=== PATIENT | female | born 1965 | race Caucasian/White ===

== ENCOUNTER 2016-08-21 17:29 | Emergency (ER) | payer OTHER ==
--- NOTE | 2016-08-21 17:52 | ERNOTE ---
Neuro HPI ER Record Date of Service: 08/21/16 Presenting Symptoms: weakness, numbness, parasthesia, impaired speech, difficulty walking, difficulty standing Time Seen by Provider: 08/21/16 17:43 Source: patient Exam Limitations: no limitations Immunizations: IMMUNIZATION HX Immunizations Up to Date Yes History of Influenza Vaccine No Hx Pneumococcal Vaccination No Allergies/Adverse Reactions: Allergies Allergy/AdvReac Type Severity Reaction Status Date / Time No Known Allergies Allergy Verified 08/21/16 17:40 Home Medications: HOME MEDICATIONS ALPRAZolam [Xanax] 1 mg PO TID PRN 03/30/15 [Last Taken Unknown] Aspirin 81 mg PO DAILY 03/30/15 [Last Taken Unknown] Atorvastatin Calcium 80 mg PO DAILY 03/30/15 [Last Taken Unknown] Calcium Citrate/Vitamin D3 [Calcium Citrate - Vit D Caplet] 1 each PO DAILY 04/05 [Last Taken Unknown] Cholecalciferol (Vitamin D3) [Vitamin D3] 2,000 unit PO DAILY 03/30/15 [Last Taken Unknown] Cyanocobalamin (Vitamin B-12) [Vitamin B-12] 1,200 mcg PO DAILY 03/30/15 [Last Taken Unknown] Docusate Sodium [Colace] 100 mg PO BID 03/30/15 [Last Taken Unknown] Folic Acid 1 mg PO DAILY 03/30/15 [Last Taken Unknown] Humira Q14D 03/30/15 [Last Taken Unknown] Methotrexate Sodium [Methotrexate] 6 tab PO Q7D 03/30/15 [Last Taken Unknown] Multivit with Calcium,Iron,Min [Women's Daily Formula] 1 each PO DAILY 03/30/15 [Last Taken Unknown] [place]-3 Fatty Acids [Fish Oil] 1,000 mg PO DAILY 03/30/15 [Last Taken Unknown] Oxycodone HCl/Acetaminophen [Percocet 10-325 mg Tablet] 2 each PO QID PRN [Last Taken Unknown] Bupropion HCl [Wellbutrin] 75 mg PO BID 08/29/15 [Last Taken Unknown] Naloxegol Oxalate [Movantik] 25 mg PO 08/29/15 [Last Taken Unknown] Suvorexant [Belsomra] 20 mg PO 08/29/15 [Last Taken Unknown] - History of Present Illness Narrative: Patient presents with right-sided acute onset weakness of the upper arm and lower leg. Roughly started about 445. Prior to that she was having some left- sided neck pain while she was at work soon after about 4:45 she started getting unsteady and had an abnormal gait. She's had history of strokes in the past she 's been down in [place] and also has had TPA in the past. She is presently on Plavix and aspirin. denies any abdominal pain chest pain or shortness of breath. Date (Duration): 08/21/16 Time (Timing): 01:00 Last Date Known Well: 08/21/16 Last Time Known Well: 04:45 Onset: sudden onset Severity: moderate - Character of Deficits Additional Deficits: Present: impaired speech, decrease ability to stand, decrease ability to walk, falling, weakness, off balance, cannot stand Associated Symptoms: Denies: fever/chills, sweating, chest pain, neck/back pain , headache, fainting, seizure, altered mental status, disoriented, confused Review of Systems - Review of Systems Constitutional: Absent: recent illness, fever, chills Respiratory: Absent: shortness of breath, cough Cardiology: Absent: chest pain, palpitations, syncope Gastrointestinal/Abdominal: Absent: nausea, vomiting, diarrhea - Patient's Past Medical History Patient History - Medical: Anxiety, Arthritis, Depression, Migraines Patient History - Cardiac/Respiratory: CVA/Stroke Patient History - Cancer: No Hx of Cancer Patient History - Surgical Procedures: Tubal Ligation, Other Patient History - Other: None - Social History Living Situations: home Psych History: Hx of Anxiety, Hx of Depression Smoking Status: Current every day smoker Have you smoked in the past 12 months: Yes Alcohol Use: none Drug Use: none - Immunizations Immunizations Up to Date: Yes Hx Pneumococcal Vaccination: No History of Influenza Vaccine: No Physical Exam - Physical Exam General Appearance: Present: wd/wn, alert, no apparent distress Eye Exam: PERRL: bilateral, EOMI: bilateral Ears, Nose, Throat: Present: normal ENT inspection, normal pharynx Neck: Present: normal inspection, nontender, supple, full range of motion Respiratory: Present: no respiratory distress, normal breath sounds, no accessory muscle use, chest nontender, lungs clear Cardiovascular/Chest: Present: regular rate, rhythm, no murmur, normal peripheral pulses Gastrointestinal/Abdominal: Present: normal bowel sounds, nontender, nondistended, no organomegaly Neurological Exam: Present: alert, oriented, normal mood/affect Evelyne Coma Scale - Assess Motor: Obeys Commands Verbal: Oriented Initial Stroke Assessment - Date/Time of assessment Stroke Scale Date: 08/21/16 - NIH Stroke Scale LOC Questions (Year and Age): Answers both correctly LOC Commands (open/close eyes/fist): Performs both correctly Lateral Gaze Paresis: None Visual Field Loss: No visual loss Facial Palsy: Normal movement Right Arm Motor (10 sec hold): Drift Left Arm Motor (10 sec hold): No drift Right Leg Motor (5 sec hold): Drift Left Leg Motor (5 sec hold): No drift Limb Ataxia (finger/nose heel/smith): Present in 1 limb If present, ataxia in:: Right arm, Right leg Sensory Loss (pinprick arms/legs/face): Mild, aware yet dulled Language Aphasia (description/naming/reading): No aphasia; normal Dysarthria (speech clarity): Slurring, intelligeble Neglect Inattention (visual/tactile/auditory/spatial/person): No neglect ED Progress - Results and Orders Patient's Lab Results:: I have reviewed the patient's lab results. - Vital Signs Patient's Vital Signs:: I have reviewed the patient's vital signs. Vital Signs: Vital Signs 08/21/16 17:34 Temperature 36.1 C L Pulse Rate 66 Respiratory 14 Rate Blood Pressure 146/85 O2 Sat by Pulse 99 Oximetry - EKG EKG: NSR EKG read: Reviewed by me - no acute changes hr 61 - Progress/Reassessment Chief Complaint: CerebroVascular Accident Progress Note-Subjective: 08/21/16 18:15 Patient still having weakness on the right side. Discussed the case with Dr. Rasmussen from [facility] neurology department stroke team. She is very aware of the patient both agreed patient would benefit with TPA. Discussed the risks and benefits with patient and at this point time were in the timeframe of giving it the benefits would outweigh the risk and patient agree. Patient is stable upon transfer she'll be air cared to [facility] and clinic for further treatment. Departure Clinical Impression: Right arm weakness, Right leg weakness, History of CVA (cerebrovascular accident) CVA (cerebral vascular accident) Qualifiers: CVA mechanism: unspecified Qualified Code(s): I63.9 - Cerebral infarction, unspecified - Departure Disposition: [facility] Condition: Stable Additional Instructions: transfered to [facility] Accepting physician Neurology - Critical Care Total Time (mins): 30
[2016-08-21 17:56] LABS: Hematocrit 37.7 % (37.0-47.0); Hemoglobin 12.5 gm/dL (12.5-16.0); Mean Cell Volume 102.7 fl (78-100); Mean Corpuscular Hemoglobin 34.1 pg (27-31); Mean Corpuscular Hgb Conc 33.2 g/dl (32-36); Mean Platelet Volume 9.1 fl (6.0-9.5); Neutrophil # 3.1 K/mm3 (1.3-6.0); Neutrophil % 49.8 % (42-75.0); Platelet Count 341 K/mm3 (150-450); Red Blood Count 3.67 M/mm3 (4.2-5.4); Red Cell Distribution Width 14.3 % (11.5-14.0); White Blood Count 6.3 K/mm3 (4.0-10.5)
[2016-08-21 18:00] VITALS: BP 132/82
[2016-08-21] MEDS ORDERED: ALTEPLASE 1 MG UNIT ONE (18:00)
[2016-08-21] MEDS: ALTEPLASE 100 MG VIAL IV ONE ×2 (18:06→18:07)
[2016-08-21 18:07] LABS: Prothrombin Time (Patient) 10.2 Seconds (9.4-11.4)
[2016-08-21 18:14] LABS: ALT 21 U/L (19-67); AST 17 U/L (0-48); Albumin * 3.9 gm/dl (3.4-5.0); Alkaline Phosphatase * 98 U/L (50-170); Anion Gap 11.7 mmol/L (6.8-13.8); Bilirubin, Total 0.3 mg/dL (0.0-1.1); Blood Urea Nitrogen 17 mg/dL (3-23); Ca. Corrected For Albumin 8.7 mg/dL (8.4-10.2); Calcium * 8.9 mg/dL (7.9-10.9); Carbon Dioxide 28.3 mmol/L (24-32.6); Chloride 106 mmol/L (97-106); Glucose * 113 mg/dL (70-110); Sodium 143 mmol/L (132-142); Total Protein 7.2 gm/dL (6.2-8.2); Troponin I Less than 0.017 ng/ml (0.00-0.10)
[2016-08-21 18:22] LABS: INR 0.98 INR (0.90-1.10); Partial Thrombolplastin Time 31.6 Seconds (24-32)
== END 2016-08-21 18:22 | disposition short-term general hospital (02) ==
LOC: ER 17:29
DX: I63.9 Cerebral infarction, unspecified (principal); Z86.73 Personal history of transient ischemic attack (TIA), and cerebral infarction without residual deficits; F17.210 Nicotine dependence, cigarettes, uncomplicated
CPT/HCPCS: 36415; 70450; 80053; 84484; 85025; 85610; 85652; 85730; 93005; 96374; 99291; J2997

== ENCOUNTER 2016-12-24 15:06 | Emergency (ER) | payer BC, OTHER ==
[2016-12-24 15:34] LABS: Hematocrit 37.1 % (37.0-47.0); Hemoglobin 12.8 gm/dL (12.5-16.0); Mean Cell Volume 98.9 fl (78-100); Mean Corpuscular Hemoglobin 34.1 pg (27-31); Mean Corpuscular Hgb Conc 34.5 g/dl (32-36); Mean Platelet Volume 8.6 fl (6.0-9.5); Neutrophil # 2.7 K/mm3 (1.3-6.0); Neutrophil % 51.9 % (42-75.0); Platelet Count 316 K/mm3 (150-450); Red Blood Count 3.75 M/mm3 (4.2-5.4); Red Cell Distribution Width 13.2 % (11.5-14.0); White Blood Count 5.1 K/mm3 (4.0-10.5)
--- NOTE | 2016-12-24 15:40 | ERNOTE ---
Medical Problem HPI - General Chief Complaint: General Assessment Time Seen by Provider: 12/24/16 15:18 Source: patient, family Exam Limitations: no limitations - Immun/Allergies/Home Medications Immunizations: IMMUNIZATION HX Immunizations Up to Date Yes History of Influenza Vaccine No Hx Pneumococcal Vaccination No Allergies/Adverse Reactions: Allergies No Known Allergies Allergy (Verified 08/21/16 17:40) Home Medications: HOME MEDICATIONS ALPRAZolam [Xanax] 1 mg PO TID PRN 03/30/15 [Last Taken Unknown] Aspirin 81 mg PO DAILY 03/30/15 [Last Taken Unknown] Atorvastatin Calcium 80 mg PO DAILY 03/30/15 [Last Taken Unknown] Calcium Citrate/Vitamin D3 [Calcium Citrate - Vit D Caplet] 1 each PO DAILY 04/05 [Last Taken Unknown] Cholecalciferol (Vitamin D3) [Vitamin D3] 2,000 unit PO DAILY 03/30/15 [Last Taken Unknown] Cyanocobalamin (Vitamin B-12) [Vitamin B-12] 1,200 mcg PO DAILY 03/30/15 [Last Taken Unknown] Docusate Sodium [Colace] 100 mg PO BID 03/30/15 [Last Taken Unknown] Folic Acid 1 mg PO DAILY 03/30/15 [Last Taken Unknown] Humira Q14D 03/30/15 [Last Taken Unknown] Methotrexate Sodium [Methotrexate] 6 tab PO Q7D 03/30/15 [Last Taken Unknown] Multivit with Calcium,Iron,Min [Women's Daily Formula] 1 each PO DAILY 03/30/15 [Last Taken Unknown] [place]-3 Fatty Acids [Fish Oil] 1,000 mg PO DAILY 03/30/15 [Last Taken Unknown] oxyCODONE HCL/ACETAMINOPHEN [Percocet 10-325 mg Tablet] 2 each PO QID PRN [Last Taken Unknown] Bupropion HCl [Wellbutrin] 75 mg PO BID 08/29/15 [Last Taken Unknown] Naloxegol Oxalate [Movantik] 25 mg PO 08/29/15 [Last Taken Unknown] Suvorexant [Belsomra] 20 mg PO 08/29/15 [Last Taken Unknown] - History of Present History Narrative: This is a 51-year-old female who presents to the emergency room via private vehicle for feeling weak in the right upper extremity. She states that this morning at 8:00 in the morning when she woke up she noticed that her hand was very weak. Patient went back to sleep. When she woke up again and she noticed that her hand was weaker, and decided to present to the emergency room. She denies any headaches photophobia diplopia or visual disturbances. Does have been consistently going on for 7 hours now. Review of Systems - Review of Systems Constitutional: Present: fatigue, other EYE: Present: no symptoms reported ENT: Present: no symptoms reported - and states she feels tired because she never sleeps well. Respiratory: Present: no symptoms reported Cardiology: Present: no symptoms reported Gastrointestinal/Abdominal: Present: no symptoms reported Genitourinary: Present: no symptoms reported Musculoskeletal: Present: no symptoms reported Skin: Present: no symptoms reported - Patient's Past Medical History Patient History - Medical: Anxiety, Arthritis, Depression, Migraines Patient History - Cardiac/Respiratory: CVA/Stroke Patient History - Cancer: No Hx of Cancer Patient History - Surgical Procedures: Tubal Ligation, Other Patient History - Other: None - Social History Living Situations: home Psych History: Hx of Anxiety, Hx of Depression Alcohol Use: none Drug Use: none - Immunizations Immunizations Up to Date: Yes Hx Pneumococcal Vaccination: No History of Influenza Vaccine: No Physical Exam - Physical Exam General Appearance: Present: wd/wn, alert, no apparent distress, other - patient appears slightly sleepy however alert and oriented in no distress. She does not have any facial droop. Ears, Nose, Throat: Present: normal ENT inspection Neck: Present: normal inspection, nontender, supple Respiratory: Present: no respiratory distress, normal breath sounds, no accessory muscle use, chest nontender, lungs clear Cardiovascular/Chest: Present: regular rate, rhythm, no murmur, normal peripheral pulses Extremity Exam: Present: normal inspection Neurological Exam: Present: alert, oriented, normal mood/affect, other - on neurological examination patient has neuro normal facies she does not have any facial droop she is not slurring her speech on examination of the extremities patient reveals that she 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 She has a slight amount of right drift in the right upper extremity L or test is intact. He has good strength in both lower extremities she walks without gait disturbances and she has no drift of lower extremities. She is alert and oriented to time place and person patient's pupillary reflexes are within normal limits except except for ocular movements are intact she is able to track my finger Skin Exam: Present: normal color, warm/dry ED Progress - Results and Orders Patient's Lab Results:: I have reviewed the patient's lab results. - Vital Signs Patient's Vital Signs:: I have reviewed the patient's vital signs. Vital Signs: Vital Signs 12/24/16 15:14 Temperature 37.1 C Pulse Rate 74 Respiratory 16 Rate Blood Pressure 163/85 O2 Sat by Pulse 96 Oximetry - CT/Ultrasound CT/Ultrasound Narrative: The head was ordered and reviewed by this examiner - Progress/Reassessment Chief Complaint: General Assessment Departure - Departure Clinical Impression: CVA (cerebral vascular accident) Qualifiers: CVA mechanism: unspecified Qualified Code(s): I63.9 - Cerebral infarction, unspecified Clinical Impression: (Ruled Out): Acute appendicitis Disposition: [facility] Condition: Serious
[2016-12-24 15:47] LABS: Albumin * 3.2 gm/dl (3.4-5.0); Anion Gap 12.1 mmol/L (6.8-13.8); BUN/Creatinine Ratio 14.9 (9.0-21.6); Bilirubin, Total 0.2 mg/dL (0.0-1.1); Ca. Corrected For Albumin 8.7 mg/dL (8.4-10.2); Calcium * 8.4 mg/dL (7.9-10.9); Carbon Dioxide 27.5 mmol/L (24-32.6); Potassium 3.6 mmol/L (3.4-4.6); Total Protein 6.6 gm/dL (6.2-8.2)
--- OUTSIDE RECORDS SUMMARY | 2016-12-24 15:57 | XMS REPORT | Continuity of Care Document ---
:1965 Author Organization [employer] [place] [address] Care Team Providers Name Role Phone WaleskaJaclyn staton Primary Care Provider [phone] Source Comments This disclosure is being made pursuant to the [employer] program and maynot contain all information available regarding this patient.[employer] Active Allergies and Adverse Reactions No Known Allergies Current Medications Be aware that medications may not be up to date as of this document. Alwaysverify current medications with the patient. Prescription Sig. Disp. Refills Start Date End Date Status ALPRAZolam (XANAX) Take 1 tablet Active 1 MG tablet by mouth 3 (three) times daily. multivitamins with Take 1 each by Active minerals mouth daily. (MULTIVITAL-M) TABS MOVANTIK 25 MG TABS Take 1 tablet 5 05/20/2015 Active by mouth every morning. clopidogrel Take 75 mg by Active (PLAVIX) 75 MG mouth daily. tablet atorvastatin Take 80 mg by Active (LIPITOR) 80 MG mouth daily. tablet BELSOMRA 20 MG TABS Take 1 tablet 5 07/21/2015 Active by mouth nightly. adalimumab (HUMIRA Inject 0.8 mLs 6 each 3 02/28/2016 Active PEN) 40 MG/0.8ML into the skin PNKT injection every 14 (fourteen) days. folic acid Take 1 tablet 90 tablet 3 05/08/2016 Active (FOLVITE) 1 MG by mouth tablet daily. methotrexate 2.5 MG Take 6 tablets 72 tablet 3 05/08/2016 Active tablet by mouth once a week. potassium chloride Take 1 tablet 30 tablet 5 11/19/2016 Active SA (K-DUR,KLOR-CON) by mouth 20 MEQ tablet daily. ASPIRIN 81 MG EC Take 1 tablet 11/20/2016 Active tablet by mouth daily. citalopram (CELEXA) Take 1 tablet 11/20/2016 Active 40 MG tablet by mouth daily. tiZANidine Take 4 mg by 2 11/19/2016 Active (ZANAFLEX) 4 MG mouth 3 tablet (three) times daily. oxyCODONE-acetamino Earliest Fill 240 tablet 0 12/10/2016 Active phen (PERCOCET) Date: 12/10/16. 10-325 MG per Take 1-2 tablet tablets by mouth every 6 hours PRN oxyCODONE HCl ER Take 1 tablet 60 tablet 0 12/10/2016 Active (OXYCONTIN) 20 MG (20 mg total) T12A 12 hr tablet by mouth every 12 (twelve) hours Earliest Fill Date: 12/10/16. citalopram (CELEXA) Take 20 mg by Discontinued 20 MG tablet mouth daily. 7 oxyCODONE-acetamino Take 1-2 240 tablet 0 11/19/2016 Discontinued phen (PERCOCET) tablets by 7 10-325 MG per mouth every 6 tablet hours PRN oxyCODONE HCl ER Take 1 tablet 60 tablet 0 11/19/2016 Discontinued (OXYCONTIN) 20 MG (20 mg total) 7 T12A 12 hr tablet by mouth every 12 (twelve) hours. Active Problems Problem Noted Date Lumbar spine pain 02/28/2016 Mini stroke (HCC) 02/28/2016 Long-term use of immunosuppressant medication 06/02/2015 History of stroke 06/02/2015 Encounter for long-term (current) use of other medications 09/29/2014 Psoriatic arthropathy (HCC) 09/29/2014 Psoriatic arthritis (HCC) 04/19/2014 Occlusion and stenosis of carotid artery 11/25/2012 Overview: Overview: CARLINE GARSIA DO Most Recent Encounters Date Type Specialty Providers Description 12/10/2016 Refill Rheumatology Brandy Santo CMA 11/27/2016 Office Visit Rheumatology William Freeman MD Psoriatic arthritis (HCC) (Primary Dx); Long-term use of immunosuppressant medication 11/19/2016 Refill Rheumatology Daysi Garcia LPN 10/30/2016 Telephone Rheumatology Binta Salazar, Medication Refill RN 10/15/2016 Telephone Rheumatology Binta Salazar, Medication Refill RN 09/25/2016 Telephone Rheumatology Behymer, Binta D, Medication Refill RN Social History Tobacco Use Types Packs/Day Years Used Date Current Every Day Smoker 1 Smokeless Tobacco: Never Used Tobacco Cessation:Ready to Quit: No; Counseling Given: Yes Comments: Alcohol Use Drinks/Week oz/Week Comments No Alcoholic Drinks/day: ALCOHOL USE: NON-DRINKER Last Filed Vital Signs Vital Sign Reading Time Taken Blood Pressure 140/81 11/27/2016 9:43 AM CDT Pulse 64 11/27/2016 9:43 AM CDT Temperature - - Respiratory Rate 16 11/25/2012 1:49 PM CDT Height 1.575 m (5' 2") 12/29/2015 8:36 AM CDT Weight 58.786 kg (129 lb 9.6 oz) 11/27/2016 9:43 AM CDT Body Mass Index 23.7 11/27/2016 9:43 AM CDT Oxygen Saturation - - Plan of Care Date Type Specialty Providers Description 04/01/2017 Appointment Rheumatology William Freeman MD [address] [id number] [phone] (Fax) Health Maintenance Due Date Last Done Comments Pneumococcal Medium Risk 19-64 yo (1 of 1 - PPSV23) 1985 Tetanus/Pertussis (1 - Tdap) 1985 Pap Smear 12/16/1987 Influenza Immunization (#1) 2016 Results from Last 3 Months CBC auto differential (11/27/2016 10:29 AM) Component Value Range WBC 6.9 3.1-11.0 x10^3/uL RBC 3.80(L) 4.00-5.10 x10^6/uL Hemoglobin 13.2 12.5-15.3 g/dL Hematocrit 38.4 33.7-46.0 % MCV 101.1(H) 82.0-98.0 fL MCH 34.7(H) 27.2-33.3 pg MCHC 34.4 32.0-36.0 g/dL RDW 13.0 11.5-14.7 % SD-RDW 47.9 36.5-50.0 fL Platelets 466(H) 150-450 x10^3/uL MPV 8.9(L) 9.1-12.1 fL NE% 41.2(L) 42.0-76.0 % %LYMPH 43.1 13.5-48.0 % %MONO 11.1 3.5-14.0 % % Eosinophils 3.4 0.0-7.0 % % Basophils 0.9 0.0-1.5 % Imm Gran Relative 0.3 0.0-1.0 % NE# 2.8 1.2-7.3 x10^3/uL Lymphs # 3.0 0.7-3.5 x10^3/uL [place]# 0.8 0.2-0.9 x10^3/uL Eosinophil # 0.2 0.0-0.5 x10^3/uL Baso# 0.1 0.0-0.1 x10^3/uL Imm Gran Absolute 0.02 0.00-0.10 x10^3/uL NRBC % 0.00 0.00-0.10 /100 WBC Specimen BLOOD Narrative Testing performed at [facility], [address] [place] [address].Viticulture Teacher Lenny Montemayor MD Comprehensive metabolic panel (11/27/2016 10:29 AM) Component Value Range Glucose 85Comment: 60-100 mg/dL Fasting Plasma Glucose (FPG)<100 MG/DL Impaired Fasting Glucose (IFG) 100-125 MG/DL Provisional Diagnosis of Diabetes Mellitus > oj=858 MG/DL (Diagnosis Must Be Confirmed) BUN, Blood 11 7-19 mg/dL Creatinine 0.7 0.6-1.2 mg/dL Glomerular Filtration Rate 96 >90 mL/min/1.73mm2 Estimate Glomerlular Filtration Rate 111Comment:The estimated GFR >90 mL/min/1.73mm2 Estimate- has not been validated for women or patients with serious comorbid conditions, or with extremes of body size, muscle mass, or nutritional status. Calcium 9.0 8.4-10.2 mg/dL Sodium 140 136-145 mmol/L Potassium 3.8 3.5-4.6 mmol/L Chloride 103 99-111 mmol/L CO2 30.1 21.0-32.0 mmol/L Albumin 3.3(L) 3.5-5.0 g/dL Total Protein 6.6 6.1-8.0 g/dL Bilirubin Total 0.2 0.2-1.2 mg/dL Alkaline Phosphatase 102 40-150 U/L AST 16 5-34 U/L ALT 13 0-55 u/L Narrative Testing performed at [facility], [address] [place] [address].Viticulture Teacher Lenny Montemayor MD
--- OUTSIDE RECORDS SUMMARY | 2016-12-24 15:57 | XMS REPORT | Continuity of Care Document ---
:1965 Author Organization [facility] ([facility]) Address [address] [place] [address] Phone [phone] Care Team Providers Name Role Phone Jaclyn Galeano Primary Care Provider [phone] Source Comments This disclosure is being made pursuant to the Care Everywhere program, applicable federal and state laws, and may not contain all informaitonavailable regarding this patient.[facility] ([facility]) Active Allergies and Adverse Reactions No Known Allergies Current Medications Prescription Sig. Disp. Refills Start Date End Date Status methotrexate 2.5 mg Take 15 mg by mouth Active tablet every week folic acid 1 mg Take 1 mg by mouth Active tablet daily aspirin 81 mg EC Take 81 mg by mouth Active tablet daily oxyCODONE-acetamino Take 1-2 tablets by Active phen 10-325 mg per mouth every 6 hours tablet as needed. citalopram 20 mg Take 40 mg by mouth Active tablet daily. ALPRAZolam 1 mg Take 1 mg by mouth 3 Active tablet times daily as needed adalimumab (HUMIRA) Inject 40 mg Active 40 mg/0.8 mL subcutaneously every injection pen 14 days clopidogrel 75 mg Take 1 tablet (75 mg 30 tablet 6 04/02/2015 Active tablet total) by mouth daily atorvastatin 80 mg Take 1 tablet (80 mg 30 tablet 11 04/02/2015 Active tablet total) by mouth daily suvorexant Take by mouth at 07/21/2015 Active (BELSOMRA) 20 mg bedtime. tablet naloxegol Take 25 mg by mouth 05/20/2015 Active (MOVANTIK) 25 mg every morning. tab potassium chloride Take 20 mEq by mouth 02/08/2016 Active 20 mEq tablet daily. oxyCODONE 20 mg XR Take 20 mg by mouth 2 Active tablet times daily. docusate 100 mg Take 100 mg by mouth Active capsule daily as needed. diphenhydrAMINE-leonel Take 2 tablets by Active taminophen 25-500 mouth at bedtime as mg per tablet needed. nicotine 14 mg/24 Apply 1 Patch (14 mg 21 Patch 10 08/23/2016 Active hr patch total) on the skin daily. Active Problems Problem Noted Date Snoring 02/03/2016 Epistaxis 08/29/2015 Internal carotid artery stenosis 04/02/2015 Acute ischemic stroke 04/02/2015 Smoking 04/02/2015 S/P administration of tPA (rtPA) in a different facility within the last 04/02 24 hours prior to admission to current facility Insomnia, unspecified 04/02/2015 Cerebrovascular accident 03/31/2015 Most Recent Encounters Date Type Specialty Providers Description 11/05/2016 Office Visit Neurology Cee Rasmussen MD Chief Comp: Patient Reported Reason For Visit 10/17/2016 Office Visit Neurology Rito Amaya MD Chief Comp: Patient Reported Reason For Visit Social History Tobacco Use Types Packs/Day Years Used Date Light Tobacco Smoker Cigarettes 0.5 35 Smokeless Tobacco: Never Used Tobacco Cessation:Ready to Quit: No; Counseling Given: Yes Comments: Alcohol Use Drinks/Week oz/Week Comments No 0 Standard drinks or equivalent 0.0 Last Filed Vital Signs Vital Sign Reading Time Taken Blood Pressure 136/77 09/19/2016 10:57 AM 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 Pulse 50 09/19/2016 10:57 AM PRODUCTION 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 Temperature 36.5 C (97.7 F) 08/23/2016 1:28 PM PRODUCTION 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 Respiratory Rate 18 08/23/2016 3:03 AM PRODUCTION 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 Height 1.575 m (5' 2") 09/19/2016 10:57 AM PRODUCTION 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 Weight 59.1 kg (130 lb 4.7 oz) 09/19/2016 10:57 AM PRODUCTION 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 Body Mass Index 23.82 09/19/2016 10:57 AM PRODUCTION 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 Oxygen Saturation 98% 08/23/2016 1:28 PM PRODUCTION 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 Plan of Care Health Maintenance Due Date Last Done Comments Hepatitis B Vaccine (1 of 3 - Primary 1966 Series) Tdap Vaccine 1977 MMR Vaccine 1984 Td Vaccine 1984 Pneumococcal Vaccine (1 of 1 - 1985 PPSV23) Cervical Cancer Screening 1996 Mammogram 2006 Influenza Vaccine: Seasonal (#1) 02/20/2016 Lipid Disorder Screening 08/23/2021 08/23/2016, 08/22/2016, 04/01/2015 Results from Last 3 Months Not on file
[2016-12-24 16:53] VITALS: BP 122/48
[2016-12-24 17:05] LABS: Urine Bilirubin Negative (NEGATIVE); Urine Blood 25 /ul (NEGATIVE); Urine Ketone Negative (NEGATIVE); Urine Nitrite Negative (NEGATIVE); Urine Protein Negative (NEGATIVE); Urine Urobilinogen Normal (NORMAL); Urine pH 6.5 pH (5.0-7.0)
[2016-12-24 17:16] LABS: Urine Appearance Clear; Urine Bacteria TRACE; Urine Color Yellow; Urine RBC None Seen /hpf (0-5); Urine WBC None Seen /hpf (0-5)
[2016-12-24 17:19] LABS: Cocaine Ur Negative (NEGATIVE); Urine Barbiturate Negative (NEGATIVE); Urine PCP Negative (NEGATIVE); Urine THC Negative (NEGATIVE)
[2016-12-24 17:20] LABS: Urine Benzodiazepines Positive (NEGATIVE); Urine Opiates Positive (NEGATIVE)
== END 2016-12-24 16:53 | disposition short-term general hospital (02) ==
LOC: ER 15:06
DX: I63.9 Cerebral infarction, unspecified (principal)